=== PATIENT | female | born 1955 | race Caucasian/White ===

== ENCOUNTER → 2023-06-16 10:54 | Outpatient (REF) | payer MEDICARE, BC, SELFPAY ==
[2023-06-16 15:44] LABS: % Basophils 0.6 % (0-2); % Eosinophils 1.7 % (0-6); % Immature Granulocytes 0.3 % (0-0.5); % Lymphocytes 29.2 % (20.5-51.1); % Monocytes 11.4 % (1.7-9.3); % Neutrophils 56.8 % (42.2-75.2); Absolute Eosinophils 0.1 10^3/uL (0-0.7); Absolute Lymphocytes 1.1 10^3/uL (1.2-3.4); Absolute Monocytes 0.4 10^3/uL (0.1-0.6); Absolute Neutrophils 2.1 10^3/uL (1.4-6.5); Hematocrit 42.8 % (37.0-47.0); Hemoglobin 14.2 g/dL (12.0-16.0); Mean Corp Hgb Conc. 33.2 g/dL (33.0-37.0); Mean Corpuscular Hgb 30.8 pg (27.0-31.0); Mean Corpuscular Volume 92.8 fL (81.0-99.0); Mean Platelet Volume 9.7 fL (7.4-10.4); Nucleated Red Blood Cells % 0 %; Platelet Count 255 10^3/uL (130-400); Red Blood Cell Count 4.61 10^6/uL (4.20-5.40); Red Cell Dist. Width 12.2 % (11.5-14.5); White Blood Cell Count 3.6 10^3/uL (4.8-10.8)
[2023-06-16 16:01] LABS: ALT (SGPT) 24 U/L (0-35); AST (SGOT) 30 U/L (14-36); Albumin 4.6 g/dl (3.5-5.0); Alkaline Phosphatase 29 U/L (38-126); Blood Urea Nitrogen 19 mg/dl (7-17); Calcium 9.8 mg/dl (8.4-10.2); Carbon Dioxide 28 mmol/L (22-30); Chloride 105 mmol/L (98-107); Glucose 105 mg/dl (70-99); HDL Cholesterol 48 mg/dl; LDL Cholesterol, Calculated 93 mg/dl; Potassium 4.6 mmol/L (3.5-5.1); Sodium 138 mmol/L (135-145); Total Bilirubin 0.9 mg/dl (0.2-1.3); Total Cholesterol 175 mg/dl (50-199); Total Protein 7.1 g/dl (6.3-8.2); Triglyceride 174 mg/dl (10-149); Very Low Density Lipoprotein 34 mg/dl (0-30); eGFR > 60.00
[2023-06-16 16:15] LABS: Free T4 1.05 ng/dl (0.78-2.19)
[2023-06-16 16:29] LABS: TSH 0.89 uIU/ml (0.47-4.68)
== END ==
LOC: HWLAB 10:54
PROVIDERS: ATTENDING PHYSICIAN Student in an Organized Health Care Education/Training Program
DX: D70.9 Neutropenia, unspecified (principal); Z13.220 Encounter for screening for lipoid disorders; Z13.29 Encounter for screening for other suspected endocrine disorder; E78.00 Pure hypercholesterolemia, unspecified; I47.10 Supraventricular tachycardia, unspecified
CPT/HCPCS: 36415; 80053; 80061; 84439; 84443; 85025

== ENCOUNTER → 2023-08-16 09:19 | Outpatient (REF) | payer MEDICARE, BC, SELFPAY | LOC: DHCBC HW 09:19 | PROVIDERS: ATTENDING PHYSICIAN Internal Medicine Cardiovascular Disease; FAMILY PHYSICIAN Student in an Organized Health Care Education/Training Program | DX: I42.8 Other cardiomyopathies (principal); Z87.74 Personal history of (corrected) congenital malformations of heart and circulatory system | CPT/HCPCS: 93306 ==

== ENCOUNTER → 2023-10-03 07:07 | Outpatient (REF) | payer MEDICARE, BC, SELFPAY | LOC: DHCBC/DCA 07:07 | PROVIDERS: ATTENDING PHYSICIAN Internal Medicine Cardiovascular Disease; FAMILY PHYSICIAN Student in an Organized Health Care Education/Training Program | DX: I42.8 Other cardiomyopathies (principal); I27.20 Pulmonary hypertension, unspecified; I10 Essential (primary) hypertension; R94.31 Abnormal electrocardiogram [ECG] [EKG] | CPT/HCPCS: 78452; 93017; A9500 ==

== ENCOUNTER → 2024-05-27 12:56 | Outpatient (REF) | payer MEDICARE, BC, SELFPAY | LOC: RCS 12:56 | PROVIDERS: ATTENDING PHYSICIAN Internal Medicine Cardiovascular Disease; FAMILY PHYSICIAN Student in an Organized Health Care Education/Training Program | DX: R55 Syncope and collapse (principal); I42.8 Other cardiomyopathies; I47.10 Supraventricular tachycardia, unspecified; Z87.74 Personal history of (corrected) congenital malformations of heart and circulatory system | CPT/HCPCS: 93225; 93226 ==

== ENCOUNTER → 2024-05-29 12:03 | Outpatient (REF) | payer MEDICARE, BC, SELFPAY ==
[2024-05-29 16:00] LABS: % Basophils 1.2 % (0-2); % Eosinophils 1.8 % (0-6); % Immature Granulocytes 0.3 % (0-0.5); % Lymphocytes 25.1 % (20.5-51.1); % Monocytes 10.2 % (1.7-9.3); % Neutrophils 61.4 % (42.2-75.2); Absolute Eosinophils 0.1 10^3/uL (0-0.7); Absolute Lymphocytes 0.9 10^3/uL (1.2-3.4); Absolute Monocytes 0.4 10^3/uL (0.1-0.6); Absolute Neutrophils 2.1 10^3/uL (1.4-6.5); Hematocrit 41.6 % (37.0-47.0); Hemoglobin 13.7 g/dL (12.0-16.0); Mean Corp Hgb Conc. 32.9 g/dL (33.0-37.0); Mean Corpuscular Hgb 30.4 pg (27.0-31.0); Mean Corpuscular Volume 92.2 fL (81.0-99.0); Mean Platelet Volume 9.5 fL (7.4-10.4); Nucleated Red Blood Cells % 0 %; Platelet Count 224 10^3/uL (130-400); Red Blood Cell Count 4.51 10^6/uL (4.20-5.40); Red Cell Dist. Width 12.5 % (11.5-14.5); White Blood Cell Count 3.4 10^3/uL (4.8-10.8)
[2024-05-29 16:08] LABS: Albumin 4.4 g/dl (3.5-5.0); Blood Urea Nitrogen 11 mg/dl (7-17); Calcium 9.4 mg/dl (8.4-10.2); Carbon Dioxide 23 mmol/L (22-30); Chloride 104 mmol/L (98-107); Glucose 112 mg/dl (70-99); Phosphorus 4.4 mg/dl (2.5-4.5); Potassium 4.4 mmol/L (3.5-5.1); Sodium 139 mmol/L (135-145); eGFR > 60.00
[2024-05-29 16:37] LABS: TSH Reflex To Free T4 1.26 uIU/ml (0.47-4.68)
== END ==
LOC: HWLAB 12:03
PROVIDERS: ATTENDING PHYSICIAN Internal Medicine Cardiovascular Disease; FAMILY PHYSICIAN Student in an Organized Health Care Education/Training Program
DX: R55 Syncope and collapse (principal); I42.8 Other cardiomyopathies; I47.10 Supraventricular tachycardia, unspecified; Z87.74 Personal history of (corrected) congenital malformations of heart and circulatory system
CPT/HCPCS: 36415; 80069; 84443; 85025

== ENCOUNTER → 2024-05-31 14:50 | Outpatient (REF) | payer MEDICARE, BC, SELFPAY | LOC: HWWDC 14:50 | PROVIDERS: ATTENDING PHYSICIAN Surgery; FAMILY PHYSICIAN Student in an Organized Health Care Education/Training Program | DX: Z12.31 Encounter for screening mammogram for malignant neoplasm of breast (principal) | CPT/HCPCS: 77063; 77067 ==

== ENCOUNTER → 2024-06-06 10:16 | Outpatient (REF) | payer MEDICARE, BC, SELFPAY | LOC: HWRCS 10:16 | PROVIDERS: ATTENDING PHYSICIAN Internal Medicine Cardiovascular Disease; FAMILY PHYSICIAN Student in an Organized Health Care Education/Training Program | DX: I42.8 Other cardiomyopathies (principal); I47.10 Supraventricular tachycardia, unspecified; Z87.74 Personal history of (corrected) congenital malformations of heart and circulatory system | CPT/HCPCS: 93306 ==

== ENCOUNTER → 2024-06-13 09:11 | Outpatient (REF) | payer MEDICARE, BC, SELFPAY | LOC: WDC 09:11 | PROVIDERS: ATTENDING PHYSICIAN Surgery; FAMILY PHYSICIAN Student in an Organized Health Care Education/Training Program | DX: R92.8 Other abnormal and inconclusive findings on diagnostic imaging of breast (principal) | CPT/HCPCS: 76642 ==